=== PATIENT | male | born 1950 | race African-American/Black ===

== ENCOUNTER → 2023-04-13 | Outpatient (CLI) | payer MEDICARE ==
[~2023-04-13] MED LIST: AMLO10TA80 PO; ATOR10TA69 PO; LISI40TA13 PO
== END | disposition home or self-care (01) ==
LOC: CARD 10:58
PROVIDERS: ATTEND Internal Medicine
DX: I08.3 Combined rheumatic disorders of mitral, aortic and tricuspid valves (principal); I49.1 Atrial premature depolarization
CPT/HCPCS: 93307